=== PATIENT | male | born 1945 ===

== ENCOUNTER 2021-08-29 19:41 | Emergency (ER) | payer BC, OTHER ==
[~2021-08-29] VITALS: Ht 162.6 cm; Wt 104.3 kg
[2021-08-29] MEDS ORDERED: COZAAR50 MG (20:07)
== END 2021-08-29 22:51 | disposition home or self-care (01) ==
LOC: ER 19:41
DX: U07.1 COVID-19 (principal); I10 Essential (primary) hypertension

== ENCOUNTER 2021-08-30 10:30 | Outpatient (CLI) | payer BC, OTHER ==
[~2021-08-30 10:30] MED LIST: COZAAR50 MG
== END 2021-08-30 10:50 | disposition home or self-care (01) ==
LOC: ASH CLINIC 10:30
PROVIDERS: ATTEND General Practice
DX: U07.1 COVID-19 (principal)

== ENCOUNTER 2022-03-06 14:09 | Inpatient (IN) | payer OTHER, BC ==
[~2022-03-06] VITALS: Ht 162.6 cm; Wt 98.0 kg
--- NOTE | 2022-03-06 15:21 | NUR ---
SE RECIBE PACIENTE ALERTA Y ORIENTADO X3 QUIEN REFIERE QUE DESDE HACE VARIOS COMENZO A NOTAR JOSE ALFREDO CELULITIS EN LA PARTE POSTERIOR DE LA PIERNA IZQUIERDA, S OBSERVA AREA EDEMATOSA. COLOR NIKKI Y SUPURANDO. SE MONITOREAN S/V Y SE UBICA PACIENTE
--- NOTE | 2022-03-06 17:31 | NUR ---
PACIENTE SE LE REALIZAN MUESTRAS DE ELAN POR ORDEN MEDICA, SE REALIZA ADMINISTRACION DE MEDICAMENTOS
== END 2022-03-09 15:01 | disposition home or self-care (01) | DRG 603 ==
LOC: ER 14:09 → SEC-K 21:13 → SURH 03-07 02:42
PROVIDERS: ADMIT Internal Medicine; ATTEND Internal Medicine
DX: L03.116 Cellulitis of left lower limb (principal); L02.416 Cutaneous abscess of left lower limb; B95.7 Other staphylococcus as the cause of diseases classified elsewhere; I10 Essential (primary) hypertension; B19.20 Unspecified viral hepatitis C without hepatic coma; K76.9 Liver disease, unspecified